=== PATIENT | male | born 1965 | race Caucasian/White ===

== ENCOUNTER → 2019-03-16 | Outpatient (CLI) | payer BC ==
[~2019-03-16] MED LIST: AMITRIPTYLINE H50 M1 PO; BYSTOLIC20 MG PO; CALCIUM CITRATE1 TA4 PO; IRON PO; LOTREL 5/20 CAP1 CAP PO; MULTI VITAMINS1 TAB PO; PROZAC40 MG PO; VIIBRYD40 MG PO; ZYLOPRIM 300MG300 MG PO; ZYRTECODT PO; [UNRECOGNIZED DRUG - OTHER] PO
== END ==
LOC: COL.RAD 07:34
DX: K21.9 Gastro-esophageal reflux disease without esophagitis (principal); K44.9 Diaphragmatic hernia without obstruction or gangrene